=== PATIENT | female | born 1965 | race Caucasian/White ===

== ENCOUNTER 2023-05-23 08:19 | Outpatient (AMB) | payer OTHER, SELFPAY ==
[2023-05-23 08:30] VITALS: BP 122/84; PULSE 108; TEMP 37.2; O2SAT 97; BMI 19.9
--- NOTE | 2023-05-23 08:30 | AM.OFFWIN_ITS ---
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 Pt states it started tuesday night and states she has more pain on her left side of her throat. Allergies Penicillins [PENICILLINS] Allergy (Intermediate, Unverified 05/23/23 08:32) HIVES HPI HPI Comments History of Present Illness Details Patient presents to the walk-in today for sick visit Complains of sore throat for last 3 days, worse on the left side. Also reports felt like she had a fever though she was unable to check because her thermometer batteries had . Denies known sick contacts Pain with swallowing Tolerating p.o. liquids, denies nausea, vomiting Denies headaches, chest pain, syncope, dizziness, weakness difficulty breathing or difficulty managing secretions [facility] Social History (Updated 05/23/23 @ 08:32 by Margaux Augustin CMA) Alcohol intake: never Patient Tobacco Use Status: Never used Tobacco Review of Systems Const All systems reviewed & are unremarkable except as noted in HPI and below Physical Exam Vital Signs: Last Vital Signs Temp 99.0 F 05/23/23 08:30 Pulse 108 H 05/23/23 08:30 BP 122/84 05/23/23 08:30 Pulse Ox 97 05/23/23 08:30 Oxygen Delivery Method Room Air 05/23/23 08:30 BMI result Body Mass Index 19.9 General: awake, alert, oriented. Answers questions appropriately. Fully engaged in examination. Skin: warm, dry, intact HEENT: TMs intact bilaterally, without erythema. Posterior pharynx with gross swelling left side, minimal uvula deviation noted. Moist oral mucosa. Sclera without icterus or injection. no drooling, airway patent. Cardiac: External chest normal in appearance. Respiratory: LSCTAB. Abdomen: without gross distension. Neurological: Oriented to person, place, time and situation. Thought process intact. Psychiatric: Appropriate mood and affect. Good judgment and insight. Results AMB Rapid Strep AMB Rapid Strep Negative Last Edit by Margaux Augustin CMA on 05/23/23 08:43 Results Reviewed Results Reviewed: Laboratory Last Values Strep Scn Rapid Clinic Negative 05/23/23 08:43 Assessment & Plan Assessment & Plan (1) Peritonsillar abscess: Code(s): J36 - Peritonsillar abscess Plan Rapid strep negative Clindamycin 300 mg p.o. q.6 hours x7 days Continue with ibuprofen or Tylenol as needed for fever or pain Patient advised on red flag symptoms and when to seek treatment in the emergency room Follow up with primary care doctor or return to the clinic as needed Orders: Orders AMB Rapid Strep Screen Today Ryne Narvaez MD Z13.9 - Encounter for screening, unspecified Medications: New clindamycin HCl 300 mg PO Q6H 7 days 28 caps 0RF Miya Ray, MARKETING SUPPORT ASSISTANT, INSTRUMENTATION TECHNICIAN Coding Level of Care Code New Pt Level 3 (15591) Diagnoses Peritonsillar abscess J36
== END 2023-05-23 10:31 | disposition home or self-care (01) ==
PROVIDERS: Visit Provider Registered Nurse Emergency
DX: J02.9 Acute pharyngitis, unspecified (principal)
CPT/HCPCS: 87880; 99203

== ENCOUNTER 2023-05-25 02:46 | Emergency (ER) | payer OTHER, SELFPAY ==
[2023-05-25 02:59] VITALS: BP 125/76; PULSE 116; RESP 18; TEMP 37.1; O2SAT 97; BMI 19.8
[2023-05-25 03:29] LABS: MANUAL DIFF FLAG NO
[2023-05-25 03:30] LABS: Basophils Percent Auto 0.3 % (0-2); Eosinophils Percent Auto 0.5 % (0-4); Hematocrit 35.9 % (37.0-47.0); Hemoglobin 12.2 g/dl (12.0-16.0); Imm Gran Abs Auto 0.02 X10*3/uL (0.00-0.03); Imm Gran Pct Auto 0.3 % (0.0-0.4); Lymphocytes Absolute Auto 0.6 X10*3/uL (1.2-4.9); Lymphocytes Percent Auto 9.5 % (20-40); Mean Corpuscular Hemoglobin 32.8 pg (27.0-33.0); Mean Corpuscular Volume 96.5 fL (80.0-98.0); Mean Platelet Volume 8.8 fL (9.4-12.3); Monocytes Absolute Auto 0.6 X10*3/uL (0.1-1.2); Monocytes Percent Auto 9.8 % (2-11); Neutrophils Percent Auto 79.6 % (45-73); Platelet Count 142 X10*3/uL (160-400); Red Blood Count 3.72 X10*6/uL (4.20-5.50); Red Cell Distribution Width 13.2 % (11.0-16.0); White Blood Count 6.2 X10*3/uL (4.8-10.8)
[2023-05-25 03:38] LABS: IDNOW Serial# 6674DD1D; Strep A Nucleic Acid Negative (Negative)
[2023-05-25 03:43] LABS: Alanine Aminotransferase 8 U/L (0-31); Alkaline Phosphatase 70 U/L (39-117); Anion Gap 16 (12-20); Aspartate Amino Transferase 12 U/L (5-31); Bilirubin Total 0.8 mg/dL (0.0-1.0); Blood Urea Nitrogen 9 mg/dL (9-16); Calcium 9.6 mg/dL (8.4-10.2); Carbon Dioxide 25 mmol/L (22-29); Chloride 101 mmol/L (96-108); Creatinine Clr Calc Pharmacy 77.5; Estimated Glomerular Filt Rate > 60; Glucose Random 105 mg/dL (60-115); Potassium 3.8 mmol/L (3.3-5.1); Sodium 138 mmol/L (135-145); Total Protein 7.2 g/dL (6.5-8.0)
[2023-05-25 04:06] LABS: Influenza A PCR NEGATIVE (Negative); Influenza B PCR NEGATIVE (Negative); Resp Syncy Virus RNA Qual PCR NEGATIVE (Negative); SARS COV2 PCR INHOUSE NEGATIVE (Negative)
[2023-05-25 08:25] VITALS: BP 145/91; PULSE 88; RESP 16; TEMP 37.5; O2SAT 100
--- NOTE | 2023-05-25 08:42 | ED_ITS ---
HPI - Skin/Abscess/Foreign Bdy General Chief complaint: Skin/Abscess/Foreign Body Stated complaint: Sore throat/?Abscess Time Seen by Provider: 05/25/23 07:26 Source: patient Mode of arrival: ambulatory History of Present Illness HPI narrative: 57-year-old female was started on antibiotics on Tuesday for throat infection thought to be peritonsillar abscess, she has been started on clindamycin 3 times a day but states that she is continued to have worsening pain on swallowing with associated headache but is able to swallow and handle secretions. Related Data Previous Rx's ?Medication ?Instructions ?Recorded clindamycin HCl 300 mg capsule 300 mg PO Q6H 7 days #28 caps 05/23/23 Allergies Allergy/AdvReac Type Severity Reaction Status Date / Time Penicillins [PENICILLINS] Allergy Intermediate HIVES Verified 05/25/23 03:10 Review of Systems 2 Review of Systems: Pertinent positives and negatives as stated in HPI PMFSH Past Medical History Source: nursing notes reviewed Social History Social History Alcohol intake: never Patient Tobacco Use Status: Never used Tobacco Physical Exam 2 Vital Signs: Vital Signs: Last Vital Signs Temp 99.5 F 05/25/23 08:25 Pulse 88 05/25/23 08:25 Resp 16 05/25/23 08:25 BP 145/91 H 05/25/23 08:25 Pulse Ox 100 05/25/23 08:25 O2 Del Method Room Air 05/25/23 08:25 BMI result Body Mass Index 19.8 VITAL SIGNS: Reviewed. GENERAL: Well developed, well nourished, in no acute distress. HEAD: Normocephalic/atraumatic EYES: PERRLA, EOMI intact without pain, no nystagmus/pallor/icterus noted EARS: Ext canals without abnormality, TMs non-bulging and non-erythematous NOSE: Nares patent bilateral OROPHARYNX: no oral lesions noted, posterior pharynx clear and non-erythematous without noted tonsillar enlargement/erythema/exudates, obvious left peritonsillar swelling and redness with uvular deviation to that side, no trismus and otherwise handling secretions NECK: Supple, no adenopathy LUNGS: Normal breath sounds. No adventitious sounds or accessory muscle use. SpO2<100> CARDIOVASCULAR: Regular rate and rhythm without noted murmurs ABDOMEN: Soft, non-tender, non-distended with bowel sounds. MUSCULOSKELETAL: No tenderness, deformities, or effusions noted on gross inspection. EXTREMITIES: No cyanosis, clubbing or edema. SKIN: Inspection of the skin reveals no rashes NEUROLOGIC: Alert and oriented x 4. Strength and sensation to light touch were grossly intact x 4. Medical Decision Making Medical Decision Making [facility] Narrative: 57-year-old female with history and clinical presentation, DDX: Peritonsillar abscess, already on antibiotics and no suspicion for untreated strep pharyngitis and patient is up-to-date on vaccines. Patient is not febrile or tachycardic. Patient provided with Tylenol/ibuprofen/Cepacol prior to discharge. I reviewed all investigations and hematologic indices are negative for leukocytosis/anemia/has thrombocytopenia. Chemistry indices are grossly within normal limits without NEL/electrolyte or liver enzyme derangements. Viral testing is negative for influenza/RSV/COVID-19 and strep pharyngitis testing is negative. Differential Diagnosis Differential Diagnoses: The differential diagnosis associated with the presentation includes Please see the discussion above Admission/Observation Consideration of admission/observation: Escalation of care including admission/observation considered Please see the discussion above Lab Data [facility] Lab Attestation statement: I reviewed the patient's lab results. Please see the discussion above 05/25/23 03:23 05/25/23 03:23 Labs: Lab Results 05/25/23 Range/Units 03:23 WBC 6.2 (4.8-10.8) X10*3/uL RBC 3.72 L (4.20-5.50) X10*6/uL Hgb 12.2 (12.0-16.0) g/dl Hct 35.9 L (37.0-47.0) % MCV 96.5 (80.0-98.0) fL MCH 32.8 (27.0-33.0) pg MCHC 34.0 (31.0-35.0) g/dl RDW 13.2 (11.0-16.0) % Plt Count 142 L (160-400) X10*3/uL MPV 8.8 L (9.4-12.3) fL Immature Gran % (Auto) 0.3 (0.0-0.4) % Neut % (Auto) 79.6 H (45-73) % Lymph % (Auto) 9.5 L (20-40) % Burnett % (Auto) 9.8 (2-11) % Eos % (Auto) 0.5 (0-4) % Baso % (Auto) 0.3 (0-2) % Lymph # (Auto) 0.6 L (1.2-4.9) X10*3/uL Burnett # (Auto) 0.6 (0.1-1.2) X10*3/uL Eos # (Auto) 0.0 (0.0-0.4) X10*3/uL Baso # (Auto) 0.0 (0.0-0.2) X10*3/uL Abs Immat Gran (auto) 0.02 (0.00-0.03) X10*3/uL Absolute Neuts (auto) 5.0 (2.0-8.3) x10*3/uL Absolute Nucleated RBC 0.000 (0.0-0.012) X10*3/uL Nucleated RBC % (auto) 0.0 (0.0-0.2) /100WBC Sodium 138 (135-145) mmol/L Potassium 3.8 (3.3-5.1) mmol/L Chloride 101 (96-108) mmol/L Carbon Dioxide 25 (22-29) mmol/L Anion Gap 16 (12-20) BUN 9 (9-16) mg/dL Creatinine 0.69 (0.5-1.4) mg/dL Estim Creat Clear Calc 77.5 Estimated GFR > 60 Random Glucose 105 (60-115) mg/dL Calcium 9.6 (8.4-10.2) mg/dL Total Bilirubin 0.8 (0.0-1.0) mg/dL AST 12 (5-31) U/L ALT 8 (0-31) U/L Alkaline Phosphatase 70 (39-117) U/L Total Protein 7.2 (6.5-8.0) g/dL Albumin 4.0 (3.5-5.0) g/dL Influenza Type A (PCR) NEGATIVE (Negative) Influenza Type B (PCR) NEGATIVE (Negative) RSV RNA Qual (PCR) NEGATIVE (Negative) SARS-CoV-2 RNA (RT-PCR) NEGATIVE (Negative) S. pyogenes GrpA DHAVAL Negative (Negative) Procedures Abscess I/D Site: other (Peritonsillar) Side (if applicable): left Technique: needle aspiration Amount of fluid expressed (mL): 4 Sent for culture/gram staining?: No Irrigation: Yes Packing used?: none Discharge Plan Discharge Clinical Impression: Peritonsillar abscess Patient Disposition: Home, Self-Care Instructions: Peritonsillar Abscess (ED) Additional Instructions: 1. Continue with antibiotics. Recommend that you continue with saline gargles, [id number] Cepacol as well as Tylenol/ibuprofen. 2. Please get a primary care doctor at your earliest convenience. Return to the ER for any worsening symptoms. Prescriptions: No Action clindamycin HCl 300 mg capsule 300 mg PO Q6H 7 Days Qty: 28 0RF Referrals: Kris Franklin [Physician] - Print Language: Uzbek
[2023-05-25 08:55] VITALS: BP 145/97; PULSE 88; RESP 16; TEMP 37.5; O2SAT 100
== END 2023-05-25 08:56 | disposition home or self-care (01) ==
LOC: HO.ED 08:47
PROVIDERS: Emergency Provider Student in an Organized Health Care Education/Training Program
DX: J36 Peritonsillar abscess (principal); Z03.818 Encounter for observation for suspected exposure to other biological agents ruled out; Z79.899 Other long term (current) drug therapy
CPT/HCPCS: 0241U; 42700; 80053; 85025; 87651; 99283; 99284